=== PATIENT | male | born 1990 | race Caucasian/White ===

== ENCOUNTER 2016-08-31 17:06 | Emergency (ER) | payer SELFPAY ==
[~2016-08-31] VITALS: Ht 170.2 cm; Wt 66.2 kg
[~2016-08-31 17:06] MED LIST: CHLORHEXIDINE473 ML PO; IBUPROFEN400 MG PO
== END 2016-08-31 18:59 | disposition home or self-care (01) ==
LOC: ED 17:06
DX: K40.91 Unilateral inguinal hernia, without obstruction or gangrene, recurrent (principal); F32.9 Major depressive disorder, single episode, unspecified; F17.200 Nicotine dependence, unspecified, uncomplicated
CPT/HCPCS: 76870; 96361; 96374; 99284; J1885; J7030

== ENCOUNTER 2016-09-09 14:19 | Emergency (ER) | payer SELFPAY ==
[2016-09-09] MEDS ORDERED: ULTRAM50 MG PO (15:51)
== END 2016-09-09 16:00 | disposition home or self-care (01) ==
LOC: ED 14:19
DX: K40.90 Unilateral inguinal hernia, without obstruction or gangrene, not specified as recurrent (principal); F32.9 Major depressive disorder, single episode, unspecified; F17.200 Nicotine dependence, unspecified, uncomplicated
CPT/HCPCS: 99283

== ENCOUNTER 2016-11-01 22:08 | Emergency (ER) | payer OTHER ==
[~2016-11-01] VITALS: Ht 170.2 cm; Wt 66.2 kg
[~2016-11-01 22:08] MED LIST changes: +ULTRAM50 MG PO
== END 2016-11-02 06:35 | disposition home or self-care (01) ==
LOC: ED 22:08
DX: F15.10 Other stimulant abuse, uncomplicated (principal); F32.9 Major depressive disorder, single episode, unspecified; F17.200 Nicotine dependence, unspecified, uncomplicated; Z79.899 Other long term (current) drug therapy
CPT/HCPCS: 80048; 80053; 81001; 85025; 87088; 96360; 96361; 96372; 99284; G0480; J2060; J3486; J7030

== ENCOUNTER 2017-04-23 23:22 | Observation (INO) | payer MEDICAID ==
[~2017-04-23] VITALS: Ht 170.2 cm; Wt 74.4 kg
--- NOTE | 2017-04-24 01:30 | NUR ---
PT IS IN ROOM. ADMISSION IS DONE. PT PAIN IS TOLERABLE. LR BAG IS HANGING, CONSENT ON CHART, IV FLUIDS ARE RUNNING, ALL LOBES ARE CLEAR, ABD SOUND ARE PRESENT, PT DENIES PROBLEMS WITH VOIDING, PT IS PASSING GAS. INGUINAL HERNIA IS PRESENT ON RIGHT SIDE. NO NEW ISSUES AT THIS TIME
--- NOTE | 2017-04-24 04:02 | NUR ---
PT IS SLEEPING AT THIS TIME.
--- NOTE | 2017-04-24 04:26 | NUR ---
WALKED BY PT ROOM AND SAW THAT PT GOT OUT OF BED AND WAS SLEEPING ON THE COUCH. HE ALSO UNHOOKED HIS IV AND THE IV FLUID WAS DRIPPING ON THE BED. LINENS WERE CHANGED, PT IS BACK IN BED, IV FLUIDS ARE HOOKED UP AND BED ALARM IS ON.
--- NOTE | 2017-04-24 05:16 | NUR ---
PT SO FAR DID NOT NEED ANY PAIN MEDICATION. PT HAS BEEN SLEEPING SINCE ARRIVAL ON THE FLOOR. ALL LOBES ARE CLEAR, NO PERIPHERAL EDEMA NOTED, PT NEEDS A BATH! PT IS PASSING GAS AND LAST BM WAS 04/23/17. HERNIA IS PRESENT ON RIGHT SIDE. PT GOT OUT OF BED AND UN-HOOKED HIS IV AND SLEPT ON THE COUCH. PT NOW IS BACK IN BED WITH THE BED ALARM ON. NO OTHER CONCERNS AT THIS TIME.
--- NOTE | 2017-04-24 07:00 | NUR ---
patient in shower doing surgical wash off and shower. tolerating well ind. no pain at this time. patient updated with plan for sugery to come get him at 0730. updates and report given from lena caal.
--- NOTE | 2017-04-24 07:30 | NUR ---
patient to [facility] with aleyda caal. patient ambulated to stretcher. lr with straight tubing started. patient updated on plan of care and plan to come back to room after surgery and recover time.
--- NOTE | 2017-04-24 09:08 | NUR ---
PT PROVIDED URINAL. VOIDED 375 MLS CLEAR YELLOW URINE.
--- NOTE | 2017-04-24 10:00 | NUR ---
gallo continues to be in surgery
--- NOTE | 2017-04-24 10:10 | NUR ---
PT IS STILL IN SURGERY, WILL DO VITALS UPON RETUEN
--- NOTE | 2017-04-24 11:04 | NUR ---
04/24/17 1104 [facility] 1047-PATIENT ARRIVED TO PACU ON 6L MASK O2 SAT 100% REACTIVE. INCISION TO RIGHT GROIN CDI ICE APPLIED. 1050-PATIENT AROUSING MOVING ARMS. GAMAL TAYLOR ADMINISTERED 1.[address] HR UP TO 140 PATIENT ENCOURAGED TO TAKE DEEP BREATHES REORIENTED TO SITUATION AND PLACE. PATIENT TEARFUL 1055-PATIENT MEDICATED WITH ADDITONAL 0.5 MG VERSED IVP BY GAMAL TAYLOR 1100-PATIENT TALKING LOOKING AT LIGHTS,PATIENT LAUGHING. ST HR 136 1103-PATIENT TALKING TO SELF AND LAUGHING RA O2 SAT 97%. HR 140'S PATIENT DENIES PAIN REPORTS "LOOPY"
--- NOTE | 2017-04-24 11:09 | NUR ---
UPDATED FROM PACU THAT PATIENT WILL BE HERE IN 30 MINUTES.
--- NOTE | 2017-04-24 11:31 | NUR ---
PATIENT BACK TO ROOM FROM SURGERY. VITALS TAKEN. PATIENT HAS CLEAN DRESSING TO LOWER R QUADRANT. PATIENT HAS CLEAR LUNGS. HR REGULAR. UPDATED PATIENT ON PLAN OF CARE TO DISCHARGE IF PATIENT MEETS CRITERIA. PATIENT AGREED WITH UPDATES. PATIENT ALERT WITH EYES AWAKE, BUT CONTINUES TO TALK TO SELF AND STATING THAT HE FEELS " NAMITA LOOPY". BED ALARM WAS PLACED ON PATIENT. SCDS APPLIED.
[2017-04-24] MEDS ORDERED: NORCO 10-325 T1 EACH PO (11:40)
--- NOTE | 2017-04-24 11:56 | NUR ---
MED REC COMLETED
--- NOTE | 2017-04-24 12:44 | NUR ---
PATIENT STOOD AT BEDSIDE. PATIENT TOLERATED WELL. PATIENT CONTINUES TO HAVE NO PAIN. VITAL SIGNS TAKEN. PATIENT ASSISTED TO THE BR. TOLERATED WELL. PATIENT VOIDED. ASSISTED BACK TO BED,
--- NOTE | 2017-04-24 13:29 | NUR ---
EILEEN MADE SL. TOLERATING FLUIDS WELL. NO NAUSEA. PATIENT TOLERATING FOOD WELL. PETE IN DISCHARGE PLANNING IN ROOM. PASTOR TORRES TALKED WITH PATIENT. CALLED PATIENTS MOTHER AND SISTER.
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
--- NOTE | 2017-04-29 06:10 | OR ---
[facility] [address] [place], [place] [address] Signed DATE OF OPERATION: 04/24/2017 SURGEON: Chelita Schulte MD PREOPERATIVE DIAGNOSES: 1. Incarcerated right inguinal hernia. 2. Right hydrocele. POSTOPERATIVE DIAGNOSES: 1. Incarcerated right indirect inguinal hernia. 2. Moderate-sized right hydrocele. PROCEDURE: Right Ward onlay mesh inguinal herniorrhaphy with hydrocelectomy. ESTIMATED BLOOD LOSS: None. INDICATIONS: Gia is a 27-year-old homeless gentleman, who apparently was born and raised here in [place]. He said he is not sure if his mom still in town. He said he has had a hernia for probably 3 years, although yesterday became significantly worse with increased pain and swelling. He could not push it back inside. Therefore, he came to the emergency room for evaluation. In the emergency room, even with Versed and morphine, the ER doctor cannot reduce the hernia. Consequently, I was asked to admit him overnight as a general surgeon on-call. He had received IV fluids, pain control, and antibiotics. However, after leaving the ER, he declined pain medication. I met with Gia this morning. On exam, he clearly has a moderate to large right inguinal hernia and he more than likely has a right hydrocele as well. I explained to Gia the idea of inguinal hernia along with the difference between the primary suture repair and a mesh repair. I also explained that he had hydrocele sac around the testicle, we could excise that at the same time. He understands expected intraop and postop course. I have asked him not to lift over 25 pounds for a month after surgery, 50 pounds the second month and after that no restrictions. He also understands there is risk including, but not limited to bleeding, infection, scarring, change in contour of the skin, damage to nerves, ischemic orchitis, recurrent hernias, and chronic pain. He expressed understanding and wished to proceed. PROCEDURE NOTE: I met with Gia in our preop area. We both agreed on the right groin and marked it Electronically Signed By: CHELITA SCHULTE MD 04/29/17 0610 PATIENT NAME: GIA PUENTES OPERATIVE REPORT DATE OF : 88 REPORT #: [id number] PHYSICIAN: CHELITA SCHULTE MD PCP: NO PRIMARY CARE PHYSICIAN REPORT IS CONFIDENTIAL AND NOT TO BE RELEASED WITHOUT AUTHORIZATION [facility] [address] [place], [place] [address] Signed appropriately. After this, he was taken in the operating room and placed in a supine position under general endotracheal tube anesthesia. He was already on preoperative antibiotics along with subcutaneous heparin. SCDs were utilized. He was then prepped and draped in the usual sterile fashion. With pharmacologic paralysis, his hernia self reduced. After this, a standard oblique incision was made over the groin and carried down through the tissue bluntly and with the cautery. We opened up the external oblique along its length and developed medially and laterally. The iliohypogastric nerve was visualized and protected throughout the case. There was a tremendous amount of edema in the cord structures and around the pubic tubercle and down into the right hemiscrotum. We elevated the cord structures at the level of the pubic tubercle with the help of a [place] drain. We approached the cord structures at the level of deep ring on the anteromedial side. We dissected through that bluntly until we found the hernia sac. We followed it distally until it ended about midway down the cord. Consequently, he has a closed noncommunicating hydrocele sac around the right testicle. We dissected the cord structures bluntly away from the hernia sac and was suture ligated that at the neck at the level of deep ring. The distal portion of the sac was amputated and passed off the field. After this, we opened up the hydrocele sac and we excised back to the edges of the testicle. A single suture was used to pexy the testicle down to the bottom of the scrotum. Care was taken so that the cord structure and the testicle were in a straight line. After this, local anesthetic was copiously injected in the operative field. Standard Prolene mesh was then cut to fit his groin and a slit was made in the mesh to accommodate the cord structures at the level of deep ring. The mesh was held in place medially and laterally with the help of running #1 Prolene suture. The wound was then irrigated and suctioned out until clear. The external oblique fascia was closed over the repair with the help of a running 2-0 PDS suture. Oralia fascia was reapproximated with a running 3-0 Monocryl suture. Dermis was reapproximated with interrupted 3-0 subcuticular Monocryl sutures. The skin was reapproximated with running 6-0 fast absorbing plain gut suture. Dry gauze and tape were then applied. Gia was then awakened from his anesthesia, extubated in the OR, and taken to the recovery room in stable condition. Chelita Schulte MD [facility]/MODL /[id number] Electronically Signed By: CHELITA SCHULTE MD 04/29/17 0610 PATIENT NAME: GIA PUENTES OPERATIVE REPORT DATE OF : 88 REPORT #: [id number] PHYSICIAN: CHELITA SCHULTE MD PCP: NO PRIMARY CARE PHYSICIAN REPORT IS CONFIDENTIAL AND NOT TO BE RELEASED WITHOUT AUTHORIZATION [address] [address] Signed cc: Chelita Schulte MD Copies: CHELITA SHCULTE MD ~ Electronically Signed By: CHELTIA SCHULTE MD 04/29/17 0610 PATIENT NAME: GIA PUENTES OPERATIVE REPORT DATE OF : 88 REPORT #: [id number] PHYSICIAN: CHELITA SCHULTE MD PCP: NO PRIMARY CARE PHYSICIAN REPORT IS CONFIDENTIAL AND NOT TO BE RELEASED WITHOUT AUTHORIZATION
== END 2017-04-24 14:29 | disposition home or self-care (01) ==
LOC: ED 23:22 → MS 23:24
PROVIDERS: ADMIT Colon & Rectal Surgery
PROC: 0YU50JZ Supplement Right Inguinal Region with Synthetic Substitute, Open Approach (ICD-10-PCS; principal; 2017-04-23)
PROC: 0VB60ZZ Excision of Right Tunica Vaginalis, Open Approach (ICD-10-PCS; 2017-04-23)
DX: K40.30 Unilateral inguinal hernia, with obstruction, without gangrene, not specified as recurrent (principal); N43.3 Hydrocele, unspecified; F17.200 Nicotine dependence, unspecified, uncomplicated; Z59.0 Homelessness; Z88.5 Allergy status to narcotic agent
CPT/HCPCS: 00830; 80053; 83690; 85025; 96361; 96374; 96375; 96376; 99285; C1781; G0378; J0330; J0696; J1100; J1170; J1644; J1885; J2250; J2405; J2704; J2710; J3010; J7030; J7120

== ENCOUNTER 2017-04-26 16:51 | Emergency (ER) | payer MEDICAID ==
[~2017-04-26] VITALS: Ht 170.2 cm; Wt 74.5 kg
[~2017-04-26 16:51] MED LIST changes: +NORCO 10-325 T1 EACH PO
[2017-04-26] MEDS ORDERED: IBUPROFEN600 MG PO (17:08)
== END 2017-04-26 20:16 | disposition home or self-care (01) ==
LOC: ED 16:51
DX: G89.18 Other acute postprocedural pain (principal); R10.9 Unspecified abdominal pain; F17.200 Nicotine dependence, unspecified, uncomplicated; Z88.5 Allergy status to narcotic agent; Z98.890 Other specified postprocedural states
CPT/HCPCS: 85025; 99283